=== PATIENT | male | born 2000 | race Caucasian/White ===

== ENCOUNTER 2022-06-06 20:52 | Emergency (ER) | payer OTHER, SELFPAY ==
[2022-06-06 20:54] VITALS: BP 132/82; PULSE 87; RESP 14; TEMP 36.6; O2SAT 99; BMI 23.5
--- NOTE | 2022-06-06 21:16 | CT_ITS ---
INDICATION: trauma EXAMINATION: CT FACIAL BONES - CT Maxillofacial W/O Contrast Injection TECHNIQUE: Helically acquired images were obtained of the facial bones. A radiation dose optimization technique was used for this scan. IV Contrast dosage and agent: None. COMPARISON: None. FINDINGS: SOFT TISSUES: Small left periorbital soft tissue hematoma. No discrete fluid collections. VISUALIZED PARANASAL SINUSES: Maxillary and ethmoid sinusitis.. VISUALIZED MASTOID AIR CELLS: Clear. FACIAL BONES, MANDIBLE AND TMJs: No displaced facial bone fracture. No lytic or blastic abnormality. VISUALIZED DENTITION: No periodontal osseous erosion. ORBITAL CONTENTS: Both globes, extraocular muscles and retrobulbar fat appear unremarkable. CT/Sinus/Facial Bone IMPRESSION: Small left periorbital soft tissue hematoma. No fracture. Electronically Signed: Goran Woodall MD at 21:49 EDT ,
--- NOTE | 2022-06-06 21:16 | CT_ITS ---
EXAMINATION : Head CT w/out contrast HISTORY : injury COMPARISON : None. TECHNIQUE : Multiple contiguous axial images were obtained from the skull base to the vertex without intravenous contrast. A radiation dose optimization technique was used for this scan. FINDINGS : The ventricles and sulci are normal in size. There is no evidence for acute intracranial hemorrhage, mass effect, or midline shift. There is no extra-axial fluid collection. There is normal veras-white differentiation, without CT evidence of acute ischemia or infarct. The skull base and calvarium are unremarkable. Small left periorbital soft tissue hematoma. Mild mucosal thickening of the bilateral maxillary sinuses and multiple ethmoid air cells. The mastoid air cells are well-aerated. The soft tissues are unremarkable. CT/Brain/Head without Contrast IMPRESSION: Small left periorbital soft tissue hematoma. No fracture or intracranial hemorrhage. Maxillary and ethmoid sinusitis. Electronically Signed: Goran Woodall MD at 21:46 EDT ,
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
--- NOTE | 2022-06-06 21:30 | RAD_ITS ---
INDICATION: injury EXAMINATION/TECHNIQUE: X-RAY - LEFT XR Hand Min 3 Views 4 VIEWS COMPARISON: None. FINDINGS: SOFT TISSUES: Soft tissue swelling at the distal radial wrist the level of the first carpometacarpal joint. No radiopaque foreign body. BONES/JOINTS: Oblique fracture through the proximal first metacarpal diaphysis with roughly 4 mm fracture displacement. Normal carpometacarpal and metacarpal phalangeal spacing and alignment. Preservation of the joint space and no degenerative bony proliferative changes. No sclerotic or destructive changes observed. RAD/Hand Min 3 Views IMPRESSION: Oblique proximal diaphyseal fracture first metacarpal with mild displacement. Electronically Signed: Dakotah Merritt DO at 21:54 EDT ,
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
[2022-06-06] MEDS: Diphth,Pertuss(Acell),Tet Vac 0.5 ML Vial IM (23:04)
[2022-06-06 23:15] VITALS: BP 125/64; PULSE 76; RESP 18; O2SAT 100
== END 2022-06-06 23:18 | disposition home or self-care (01) ==
PROVIDERS: Emergency Provider Emergency Medicine; Visit Provider Emergency Medicine
DX: S62.232A Other displaced fracture of base of first metacarpal bone, left hand, initial encounter for closed fracture (principal); S00.83XA Contusion of other part of head, initial encounter; S00.212A Abrasion of left eyelid and periocular area, initial encounter; Z23 Encounter for immunization; V18.4XXA Pedal cycle driver injured in noncollision transport accident in traffic accident, initial encounter
CPT/HCPCS: 70450; 70486; 72040; 73130; 90471; 90715; 99283

== ENCOUNTER → 2022-10-22 | Outpatient (CLI) | payer SELFPAY | END | disposition home or self-care (01) | LOC: LABSPEC 08:43 | PROVIDERS: Referring Provider Otolaryngology; Visit Provider Otolaryngology | DX: J35.01 Chronic tonsillitis (principal) | CPT/HCPCS: 87070 ==